=== PATIENT | female | born 1995 | race African-American/Black ===

== ENCOUNTER 2020-01-14 23:08 | Emergency (ER) | payer OTHER ==
[~2020-01-14] VITALS: Ht 162.6 cm; Wt 77.1 kg
[2020-01-15] MEDS ORDERED: KEFLEX500 M1 PO (01:08)
[2020-01-15 01:39] VITALS: BP 132/76
== END 2020-01-15 01:40 | disposition home or self-care (01) ==
LOC: ER 23:08
DX: S91.202A Unspecified open wound of left great toe with damage to nail, initial encounter (principal); W03.XXXA Other fall on same level due to collision with another person, initial encounter; Y93.89 Activity, other specified; Y92.89 Other specified places as the place of occurrence of the external cause; Y99.9 Unspecified external cause status